=== PATIENT | female | born 1990 | race Caucasian/White ===

== ENCOUNTER 2019-09-15 10:26 | Day surgery (SDC) | payer BC ==
--- NOTE | 2019-09-14 11:15 | NUR ---
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 States has had multiple PE's.
[~2019-09-15] VITALS: Ht 165.1 cm; Wt 110.9 kg
[2019-09-15] MEDS ORDERED: NORCO 325 MG-51 TAB PO (11:06)
[2019-09-15 11:19] VITALS: BP 135/98; PULSE 96; TEMP 98.6
[2019-09-15] MEDS ORDERED: EFFEXOR-XR150 MG PO (11:24)
[2019-09-15] MEDS ORDERED: AZULFIDINE500 MG/TAB PO (11:25)
[2019-09-15] MEDS ORDERED: ELIQUIS 5MG PO (11:26)
[2019-09-15] MEDS ORDERED: PRINIVIL5 MG PO (11:26)
[2019-09-15] MEDS ORDERED: DEPO-PROVER150 MG/M1 (11:28)
[2019-09-15] MEDS ORDERED: PREVACID 15MG15 M1 PO (11:29)
[2019-09-15 12:45] VITALS: BP 132/95; PULSE 79; TEMP 98.1
--- NOTE | 2019-09-15 12:45 | NUR ---
Pt to [facility] via cart from [facility]. Pt drowsy, but awake. Pt ambulates to recliner with stand by assistance. Warm blanket provided. Sprite and crackers provided. in room. Will continue to monitor. Call light within reach.
[2019-09-15 13:00] VITALS: BP 142/101; PULSE 86
--- NOTE | 2019-09-15 13:00 | NUR ---
Pt continues to rest. Denies pain or nausea. Tolerating po food and fluids without difficulties. Call light within reach.
[2019-09-15 13:15] VITALS: BP 149/93; PULSE 76
--- NOTE | 2019-09-15 13:15 | NUR ---
Discharge instructions reviewed. Pt voices understanding. IV site discontinued with all parts intact. Pt up to dress. Call light within reach.
--- NOTE | 2019-09-15 13:35 | NUR ---
Pt escorted to private car via wheel chair. Pt accompanied home by her .
== END 2019-09-15 13:35 | disposition home or self-care (01) ==
LOC: SDCO 10:26
DX: R10.9 Unspecified abdominal pain (principal); R19.5 Other fecal abnormalities; R19.7 Diarrhea, unspecified; R14.0 Abdominal distension (gaseous); R93.5 Abnormal findings on diagnostic imaging of other abdominal regions, including retroperitoneum; I26.99 Other pulmonary embolism without acute cor pulmonale; E07.9 Disorder of thyroid, unspecified; I10 Essential (primary) hypertension; F41.9 Anxiety disorder, unspecified; F32.9 Major depressive disorder, single episode, unspecified; Z88.1 Allergy status to other antibiotic agents; Z88.5 Allergy status to narcotic agent; Z79.01 Long term (current) use of anticoagulants; Z79.899 Other long term (current) drug therapy; Z90.89 Acquired absence of other organs
CPT/HCPCS: J2250; J2704; J7030

== ENCOUNTER 2020-11-24 09:54 | Day surgery (SDC) | payer BC ==
[~2020-11-24] VITALS: Ht 165.1 cm; Wt 124.8 kg
[~2020-11-24 09:54] MED LIST: AZULFIDINE500 MG/TAB PO; DEPO-PROVER150 MG/M1; EFFEXOR-XR150 MG PO; ELIQUIS 5MG PO; NORCO 325 MG-51 TAB PO; PREVACID 15MG15 M1 PO; PRINIVIL5 MG PO
[2020-11-24 10:51] VITALS: BP 128/83; PULSE 82; TEMP 98
[2020-11-24] MEDS ORDERED: EFFEXOR XR75 MG/CAP PO (11:08)
[2020-11-24] MEDS ORDERED: LAMICTAL 100MG100 MG PO (11:10)
[2020-11-24] MEDS ORDERED: KLONOPIN 1MG1 MG PO (11:11)
[2020-11-24] MEDS ORDERED: VANCOCIN H125 MG/CAP PO (11:12)
[2020-11-24] MEDS ORDERED: SYNTHROID0.075 MG/T PO (11:12)
[2020-11-24] MEDS ORDERED: ATARAX50 MG PO (11:14)
[2020-11-24 12:25] VITALS: BP 132/71; PULSE 76; TEMP 97.4
--- NOTE | 2020-11-24 12:25 | NUR ---
The patient arrived back to [facility] from [facility] at this time. The patient ambulated from the cart to the recliner in her room with the stand by assistance of two nurses and appeared to tolerate the activity well. Post operative vital signs were started at this time. The patient denies wanting anything to eat or drink at this time. The patient's mother is at her bedside at this time. Call light is within reach. Will continue to monitor the patient.
[2020-11-24 12:36] VITALS: TEMP 97.4
[2020-11-24 12:40] VITALS: BP 136/73; PULSE 75
--- NOTE | 2020-11-24 12:45 | NUR ---
The patient appears more alert at this time and agrees to try a sprite to drink. Vital signs appear stable. Call light remains within reach. Will continue to monitor the patient.
[2020-11-24 12:55] VITALS: BP 125/82; PULSE 82
--- NOTE | 2020-11-24 12:55 | NUR ---
Patient is alert and oriented. Vital signs are stable and complete. Patient has tolerated sprite and muffin well. Doctor to bedside, spoke to patient about findings.
--- NOTE | 2020-11-24 13:10 | NUR ---
Discontinued patients IV with no complications. Patient verbalizes understanding of discharge instructions. Instructed patient to dress and that staff can walk them out when they are ready.
--- NOTE | 2020-11-24 13:20 | NUR ---
Patient ambulated well out to personal vehicle with mother and nurse. Personal belonging and discharge documents sent home with patient.
== END 2020-11-24 13:20 | disposition home or self-care (01) ==
LOC: SDCO 09:54
DX: A04.5 Campylobacter enteritis (principal); A04.72 Enterocolitis due to Clostridium difficile, not specified as recurrent; R10.32 Left lower quadrant pain; I10 Essential (primary) hypertension; I26.94 Multiple subsegmental thrombotic pulmonary emboli without acute cor pulmonale; K21.9 Gastro-esophageal reflux disease without esophagitis; E03.9 Hypothyroidism, unspecified; K58.9 Irritable bowel syndrome, unspecified; F32.9 Major depressive disorder, single episode, unspecified; F41.9 Anxiety disorder, unspecified; Z86.19 Personal history of other infectious and parasitic diseases; Z79.899 Other long term (current) drug therapy; Z79.890 Hormone replacement therapy; Z79.01 Long term (current) use of anticoagulants
CPT/HCPCS: J2704; J7030

== ENCOUNTER 2021-08-05 20:43 | Emergency (ER) | payer BC ==
[~2021-08-05] VITALS: Ht 165.1 cm; Wt 122.7 kg
[~2021-08-05 20:43] MED LIST changes: +ATARAX50 MG PO; +EFFEXOR XR75 MG/CAP PO; +KLONOPIN 1MG1 MG PO; +LAMICTAL 100MG100 MG PO; +SYNTHROID0.075 MG/T PO; +VANCOCIN H125 MG/CAP PO
[2021-08-05 22:35] LABS: INR 1.5 (0.8-3.0); PROTHROMBIN TIME 16.9 SECONDS (9.7-12.8)
[2021-08-05 22:36] LABS: D-DIMER < 200.00 ng/mLDDu (200-230)
[2021-08-05 23:29] VITALS: BP 121/81; PULSE 84; TEMP 98
== END 2021-08-05 23:29 | disposition home or self-care (01) ==
LOC: COL.ER 20:43
PROVIDERS: Physician Assistant
DX: M79.622 Pain in left upper arm (principal); E03.9 Hypothyroidism, unspecified; F32.A Depression, unspecified; Z79.890 Hormone replacement therapy; Z79.899 Other long term (current) drug therapy